=== PATIENT | female | born 1985 | race African-American/Black ===

== ENCOUNTER 2016-03-04 22:05 | Emergency (ER) | payer BC ==
[~2016-03-04] VITALS: Ht 162.6 cm; Wt 89.0 kg
[~2016-03-04 22:05] MED LIST: NITR-58 PO; PHEN95TA29 PO
[2016-03-04 22:08] VITALS: Ht 162.6 cm; Wt 89.0 kg
[2016-03-04] MEDS ORDERED: IBUP-1542 PO (23:33)
[2016-03-04] MEDS ORDERED: AMOX1TAB10 PO (23:33)
--- NOTE | 2016-03-04 23:51 | ERD ---
ER Documentation Chief Complaint Date/Time DATE: 03/04/16 TIME: 23:46 Chief Complaint toothache HPI Patient is a 31-year-old female who presents to the emergency department with tooth pain. Patient states pain started approximately one week ago. Patient states that the pain is in her upper right jaw. Patient states that her current pain now as a 7 out of 10, and throbbing in nature. Patient states that the pain is worse with chewing. Patient has no trismus or muffled voice. She denies any bleeding or discharge. Patient denies trying any pain medications. Patient denies any fever, chills, nausea, vomiting. She has not seen a dentist yet. ROS All systems reviewed and are negative except as per history of present illness. Medications Home Meds Active Scripts Amoxicillin/Potassium Clav (Amox-Clav 875-125 mg Tablet) 875-125 mg Tab, 1 TAB PO BID for 7 Days, #14 TAB Prov:MIKKI REYES PA-C 03/04/16 Ibuprofen* (Ibuprofen*) 600 Mg Tablet, 600 MG PO Q6, #30 TAB Prov:MIKKI REYES PA-C 03/04/16 Phenazopyridine Hcl* (AZO*) 95 Mg Tablet, 95 MG PO TID, #10 TAB Prov:LOY HEREDIA PA-C 10/29/15 Nitrofurantoin Monohyd Macrocr* (Macrobid*) 100 Mg Capsr, 100 MG PO BID for 7 Days, CAP Prov:LOY HEREDIA PA-C 10/29/15 Allergies Allergies: Coded Allergies: No Known Allergy (Unverified , 10/29/15) PMhx/Soc History of Surgery: No Anesthesia Reaction: No Hx Neurological Disorder: No Hx Respiratory Disorders: Yes (ASTHMA) Hx Cardiac Disorders: No Hx Psychiatric Problems: No Hx Miscellaneous Medical Probl: No Hx Alcohol Use: No Hx Substance Use: No FmHx Family History: diabetes Physical Exam Vitals Vital Signs Date Time Temp Pulse Resp B/P Pulse Ox O2 Delivery O2 Flow Rate FiO2 03/04/16 22:08 97.7 86 20 112/55 100 Physical Exam GENERAL: Well-developed, well-nourished female. Appears in no acute distress. Speaking in full sentences. HEAD: Normocephalic, atraumatic. No deformities or ecchymosis. EYE: Pupils equal, round, and reactive to light. EOMs intact. No conjunctival erythema. No scleral icterus. No eye discharge. ENT: External ear without any masses or tenderness. Auditory canals clear bilaterally. TM visualized bilaterally, non-erythematous, non-bulging. Nasal mucosa pink with no discharge. Oropharynx is pink without any tonsillar erythema or exudates. No uvula deviation. No kissing tonsils. Upper right teeth tender to palpation. Gums in upper right jaw appear erythematous. No active bleeding or discharge noted. No trismus. NECK: Supple. No lymphadenopathy or thyromegaly. No meningismus. Trachea midline. No neck hyperextension noted. LUNGS: Clear to auscultation bilaterally. No rhonchi, wheezing, rales or coarse breath sounds. HEART: Regular rate and rhythm. No murmurs, rubs or gallops. EXTREMITES: Equal pulses bilaterally. No peripheral clubbing, cyanosis or edema. No unilateral leg swelling. NEUROLOGIC: Alert and oriented to person, place and time. Moving all four extremities. 5/5 strength in all extremities. Normal speech. Steady gait. SKIN: Normal color. Warm and dry. No rashes or lesions. Procedures/MDM MEDICAL DECISION MAKING: This is a 31-year-old female who presents with upper right tooth pain 1 week. Vital signs were reviewed. Patient is afebrile. Patient is not hypoxic. The patient did not have trismus, muffled voice, uvula deviation, unilateral tonsillar swelling, or drooling. No signs of neck swelling or hyperextension of the neck noted. Given these findings, the patient's presentation is most consistent with dental caries vs. tooth abscess. I have a much lower clinical concern for epiglottitis, strep pharyngitis, peritonsillar abscess, retropharyngeal abscess or Amandeep's angina. PRESCRIPTIONS: Augmentin, Ibuprofen Patient advised to complete full course of antibiotics. A prescription for Ibuprofen was provided for pain/fever control. I have instructed the patient to see a dentist tomorrow. Referral information provided. I have instructed the patient to promptly return to the ER for any new or worsening symptoms including increased pain, fever, neck swelling/stiffness, drooling, rash or difficulty breathing. The patient and/or family expressed understanding of and agreement with this plan. All questions were answered. Home care instructions were provided. Departure Diagnosis: Primary Impression: Tooth pain Condition: Stable Patient Instructions: Dental Pain Referrals: [facility] YOU HAVE RECEIVED A MEDICAL SCREENING EXAM AND THE RESULTS INDICATE THAT YOU DO NOT HAVE A CONDITION THAT REQUIRES URGENT TREATMENT IN THE EMERGENCY DEPARTMENT. FURTHER EVALUATION AND TREATMENT OF YOUR CONDITION CAN WAIT UNTIL YOU ARE SEEN IN YOUR DOCTORS OFFICE WITHIN THE NEXT 1-2 DAYS. IT IS YOUR RESPONSIBILITY TO MAKE AN APPOINTMENT FOR FOLOW-UP CARE. IF YOU HAVE A PRIMARY DOCTOR --you should call your primary doctor and schedule an appointment IF YOU DO NOT HAVE A PRIMARY DOCTOR YOU CAN CALL OUR PHYSICIAN REFERRAL HOTLINE AT IF YOU CAN NOT AFFORD TO SEE A PHYSICIAN YOU CAN CHOSE FROM THE FOLLOWING [facility] [address] [facility] [address] [facility] [address] [facility] [address] [facility] [address] [facility] [facility] [address] [facility] [facility] YOU HAVE RECEIVED A MEDICAL SCREENING EXAM AND THE RESULTS INDICATE THAT YOU DO NOT HAVE A CONDITION THAT REQUIRES URGENT TREATMENT IN THE EMERGENCY DEPARTMENT. FURTHER EVALUATION AND TREATMENT OF YOUR CONDITION CAN WAIT UNTIL YOU ARE SEEN IN YOUR DOCTORS OFFICE WITHIN THE NEXT 1-2 DAYS. IT IS YOUR RESPONSIBILITY TO MAKE AN APPOINTMENT FOR FOLOW-UP CARE. IF YOU HAVE A PRIMARY DOCTOR --you should call your primary doctor and schedule and appointment IF YOU DO NOT HAVE A PRIMARY DOCTOR YOU CAN CALL OUR PHYSICIAN REFERRAL HOTLINE AT . IF YOU CAN NOT AFFORD TO SEE A PHYSICIAN YOU CAN CHOSE FROM THE FOLLOWING [facility] INSTITUTIONS: [facility] [address] [place] [address] [facility] [address] [place] [address] [facility] [address] [place] [address] [facility] ([facility] walk in clinic) Additional Instructions: Call your primary care doctor/dentist TOMORROW for an appointment during the next 1-2 days.See the doctor sooner or return here if your condition worsens before your appointment time. See dental referral list. MIKKI REYES PA-C Mar 04, 2016 23:51
== END 2016-03-04 23:48 | disposition home or self-care (01) ==
LOC: FTE 22:05
DX: K08.89 Other specified disorders of teeth and supporting structures (principal); J45.909 Unspecified asthma, uncomplicated
CPT/HCPCS: 99283

== ENCOUNTER 2016-03-30 13:17 | Emergency (ER) | payer BC ==
[~2016-03-30] VITALS: Ht 170.2 cm; Wt 67.0 kg
[~2016-03-30 13:17] MED LIST changes: +AMOX1TAB10 PO; +IBUP-1542 PO
[2016-03-30 13:39] VITALS: Ht 170.2 cm; Wt 67.0 kg
[2016-03-30 17:57] LABS: URINE BLOOD (Dip) POC Negative (NEGATIVE)
[2016-03-30] MEDS ORDERED: NITR-58 PO (18:24)
--- NOTE | 2016-03-30 18:31 | ERD ---
ER Documentation Chief Complaint Date/Time DATE: 03/30/16 TIME: 18:25 Chief Complaint sore tenderness in vaginal area HPI Patient is a 31-year-old female who presents to the emergency department with vaginal pain 2 days. Patient states that she has pain with urination. Patient states that the pain is burning and stinging in nature. She states her current pain level is a 6 out of 10. Patient denies any pain medication. Patient denies any excessive vaginal bleeding or vaginal discharge. Patient also reports small bump on pubis. Patient states that it is tender to palpation. Patient denies any fever, chills, nausea, vomiting. Patient states that her last menstrual period was on 03/21/16. ROS All systems reviewed and are negative except as per history of present illness. Medications Home Meds Active Scripts Nitrofurantoin Monohyd Macrocr* (Macrobid*) 100 Mg Capsr, 100 MG PO BID for 7 Days, CAP Prov:MIKKI REYES PA-C 03/30/16 Amoxicillin/Potassium Clav (Amox-Clav 875-125 mg Tablet) 875-125 mg Tab, 1 TAB PO BID for 7 Days, #14 TAB Prov:MIKKI REYES PA-C 03/04/16 Ibuprofen* (Ibuprofen*) 600 Mg Tablet, 600 MG PO Q6, #30 TAB Prov:MIKKI REYES PA-C 03/04/16 Phenazopyridine Hcl* (AZO*) 95 Mg Tablet, 95 MG PO TID, #10 TAB Prov:LOY HEREDIA PA-C 10/29/15 Nitrofurantoin Monohyd Macrocr* (Macrobid*) 100 Mg Capsr, 100 MG PO BID for 7 Days, CAP Prov:LOY HEREDIAC 10/29/15 Allergies Allergies: Coded Allergies: No Known Allergy (Unverified , 10/29/15) PMhx/Soc History of Surgery: No Anesthesia Reaction: No Hx Neurological Disorder: No Hx Respiratory Disorders: Yes (ASTHMA) Hx Cardiac Disorders: No Hx Psychiatric Problems: No Hx Miscellaneous Medical Probl: No Hx Alcohol Use: Yes (OCCASIONAL) Hx Substance Use: No Hx Tobacco Use: Yes Smoking Status: Current some day smoker FmHx Family History: No diabetes Physical Exam Vitals Vital Signs Date Time Temp Pulse Resp B/P Pulse Ox O2 Delivery O2 Flow Rate FiO2 03/30/16 13:39 97.8 78 18 117/64 98 Physical Exam GENERAL: Well-developed, well-nourished female. Appears in no acute distress. HEAD: Normocephalic, atraumatic. EYES: Pupils are equally reactive bilaterally. EOMs grossly intact. No conjunctival erythema. ENT: Moist mucous membranes. No uvula deviation. No kissing tonsils. NECK: Supple. No lymphadenopathy or thyromegaly. No meningismus. LUNG: Clear to auscultation bilaterally. No rhonchi, wheezing, rales or coarse breath sounds. HEART: Regular rate and rhythm. No murmurs, rubs or gallops. ABDOMEN: No scars, ecchymosis or rashes noted. Soft and nondistended. Tender to palpation in the suprapubic region. Positive bowel sounds in all four quadrants. No rebound tenderness, no guarding. (-) McBurneys point tenderness. No CVA tenderness. FEMALE GENITALIA: Normal external female genitalia. Normal vaginal mucosal without lesions or discharge. +Ingrown hair in left pubic region. Minimal swelling, +tenderness to palpation, no discharge. EXTREMITIES: Equal pulses bilaterally. No peripheral clubbing, cyanosis or edema. No unilateral leg swelling. NEUROLOGIC: Alert and oriented. Moving all four extremities without any difficulty. Normal speech. Steady gait. SKIN: Normal color. Warm and dry. No rashes or lesions. Results 24 hrs Laboratory Tests Test 03/30/16 17:59 Bedside Urine Blood Negative Bedside Urine Glucose (UA) Negative Bedside Urine Ketones (LAB) Negative Bedside Urine Leukocyte Esterase (L Negative Bedside Urine Nitrite (LAB) Positive Bedside Urine Protein (LAB) Trace Bedside Urine pH (LAB) 7.0 Procedures/MDM MEDICAL DECISION MAKING: This is a 31-year-old female who presents with vaginal pain 2 days. Patient reported pain with urination. Vital signs were reviewed. Patient was afebrile. Urine dip was positive for nitrites, negative for hematuria. Urine was negative. Given these findings, the patients presentation is most consistent with urinary tract infection and ingrown hair. I have a much lower clinical concern for pyelonephritis, nephrolithiasis, diverticulitis, , ectopic , bacterial vaginosis, vaginal candidiasis. PRESCRIPTIONS: Macrobid DISCHARGE: At this time, patient is stable for discharge and outpatient management. Warm compresses advised to ingrown hair. Patient advised to avoid shaving pubic region. I have instructed the patient to follow-up with his/her primary care physician in 1-2 days. Patient should repeat UA in 2 weeks to check for resolution of urinary tract infection. If symptoms persist, patient may need to see a specialist for further examinations and testing. I have instructed the patient to promptly return to the ER at any time for any new or worsening symptoms including increased pain, fever, nausea, vomiting, urinary changes or weakness. The patient and/or family expressed understanding of and agreement with this plan. All questions were answered. Home care instructions were provided. Departure Diagnosis: Primary Impression: UTI (urinary tract infection) Urinary tract infection type: site unspecified Hematuria presence: without hematuria Qualified Code: N39.0 - Urinary tract infection without hematuria, site unspecified Additional Impression: Ingrown hair Condition: Stable Patient Instructions: Understanding Urinary Tract Infections (UTIs) Additional Instructions: Drink plenty of water. Take full course of antibiotics. Warm compresses to ingrown hair. Avoid shaving. Call your primary care doctor TOMORROW for an appointment during the next 1-2 days.See the doctor sooner or return here if your condition worsens before your appointment time. MIKKI REYES PA-C Mar 30, 2016 18:31
== END 2016-03-30 18:28 | disposition home or self-care (01) ==
LOC: FTE 13:17
DX: N39.0 Urinary tract infection, site not specified (principal); L73.1 Pseudofolliculitis barbae; J45.909 Unspecified asthma, uncomplicated; F17.210 Nicotine dependence, cigarettes, uncomplicated
CPT/HCPCS: 81003; 99283

== ENCOUNTER 2016-07-16 00:06 | Emergency (ER) | payer BC ==
[~2016-07-16] VITALS: Ht 160 cm; Wt 77.5 kg
[2016-07-16 00:11] VITALS: Ht 160 cm; Wt 77.5 kg
[2016-07-16] MEDS ORDERED: MICO1COM VG (01:19)
[2016-07-16] MEDS ORDERED: FLUCONAZOLE 150 MG TAB PO ONE (01:30)
--- NOTE | 2016-07-16 01:59 | ERD ---
ER Documentation Chief Complaint Date/Time DATE: 07/16/16 TIME: 01:48 Chief Complaint requesting std check up HPI 31-year-old female presented to ED requesting for STD check. When further questioned, patient admits to having symptoms of vaginal itching and burning with thick white discharge for the last 2 days. Patient is sexually active, with the same male partner for the last 12 month. Patient stated that she have had STD check in the past year, which was negative. Denies fever or chills. Denies dysuria. Denies fishy odor. Denies purulent discharge. Patient also requests urine test. ROS All systems reviewed and are negative except as per history of present illness. Medications Home Meds Active Scripts Miconazole Nitrate (Vagistat-3) 1 Each Kit, 1 EACH VG QHS for 3 Days, KIT Prov:WOLFGANG GRAY [employer]UC[employer] 07/16/16 Nitrofurantoin Monohyd Macrocr* (Macrobid*) 100 Mg Capsr, 100 MG PO BID for 7 Days, CAP Prov:MIKKI REYES PA-C 03/30/16 Amoxicillin/Potassium Clav (Amox-Clav 875-125 mg Tablet) 875-125 mg Tab, 1 TAB PO BID for 7 Days, #14 TAB Prov:MIKKI REYES PA-C 03/04/16 Ibuprofen* (Ibuprofen*) 600 Mg Tablet, 600 MG PO Q6, #30 TAB Prov:MIKKI REYES PA-C 03/04/16 Phenazopyridine Hcl* (AZO*) 95 Mg Tablet, 95 MG PO TID, #10 TAB Prov:LOY HEREDIA PA-C 10/29/15 Nitrofurantoin Monohyd Macrocr* (Macrobid*) 100 Mg Capsr, 100 MG PO BID for 7 Days, CAP Prov:LOY HEREDIA PA-C 10/29/15 Allergies Allergies: Coded Allergies: No Known Allergy (Unverified , 10/29/15) PMhx/Soc History of Surgery: No Anesthesia Reaction: No Hx Neurological Disorder: No Hx Respiratory Disorders: Yes (ASTHMA) Hx Cardiac Disorders: No Hx Psychiatric Problems: No Hx Miscellaneous Medical Probl: No Hx Alcohol Use: Yes (OCCASIONAL) Hx Substance Use: No Hx Tobacco Use: Yes Smoking Status: Current every day smoker Physical Exam Vitals Vital Signs Date Time Temp Pulse Resp B/P Pulse Ox O2 Delivery O2 Flow Rate FiO2 07/16/16 00:11 97.7 85 20 116/58 100 Physical Exam General: Well-developed, well-nourished, conscious and coherent, in no distress Skin: Warm and dry without rash, good texture and turgor Head: Normocephalic without evidence of trauma Eyes: Sclera and conjunctivae normal; pupils equal, round, and reactive to light; extraocular movements are intact Chest: Normal AP diameter. Good expansion without retractions. Nontender. Lungs are clear to auscultate bilaterally with good tidal volume Heart: Regular rate and rhythm. No murmur, rub, or gallops heard Abdomen: Soft and nontender without masses, guarding, or rebound. Bowel sounds are active. No hepatosplenomegaly Back: Without spinal or CVA tenderness Pelvis: Nontender to palpation and stable to compression : Erythema noted in the external genitalia at the vaginal introitus. Thick white discharge present. Extremities: Full range of motion. Good strength bilaterally. No clubbing, cyanosis, or edema. Peripheral pulses are intact. Sensation intact Neuro: Alert and oriented 4, GCS 15. Cranial nerves grossly intact. Motor and sensory exams nonfocal. Moves all extremities. Speech clear. Gait normal Results 24 hrs Current Medications Medications (Trade) Dose Ordered Sig/Royce Route PRN Reason Start Time Stop Time Status Last Admin Dose Admin Fluconazole (Diflucan) 150 mg ONCE ONCE PO 07/16/16 01:30 07/16/16 01:31 DC 07/16/16 01:31 Procedures/MDM Well-appearing 31-year-old female presented ED with vaginal symptoms. Her history exam findings are consistent with yeast vaginitis. Patient has had a single partner for the last 12 month, low risk for sexually transmitted infection. I do not feel a STI testing is warranted at this time. However I informed the patient that if she really wants STI testing, she may obtain them at [facility]. Urine test negative. Patient given Diflucan 150 mg p.o. in the ED. Patient appears well, stable for discharge and outpatient management. Medical decision making shared with patient and family. Education provided to patient and family. Patient and family expressed understanding of the plan. Medications on discharge: Miconazole vaginal suppository. Follow-up: Primary care provider in 2-3 days or return to ED if worse. Departure Diagnosis: Primary Impression: Yeast vaginitis Condition: Good Patient Instructions: Vaginal Infection: Yeast (Candidiasis) Referrals: [facility] YOU HAVE RECEIVED A MEDICAL SCREENING EXAM AND THE RESULTS INDICATE THAT YOU DO NOT HAVE A CONDITION THAT REQUIRES URGENT TREATMENT IN THE EMERGENCY DEPARTMENT. FURTHER EVALUATION AND TREATMENT OF YOUR CONDITION CAN WAIT UNTIL YOU ARE SEEN IN YOUR DOCTORS OFFICE WITHIN THE NEXT 1-2 DAYS. IT IS YOUR RESPONSIBILITY TO MAKE AN APPOINTMENT FOR FOLOW-UP CARE. IF YOU HAVE A PRIMARY DOCTOR --you should call your primary doctor and schedule an appointment IF YOU DO NOT HAVE A PRIMARY DOCTOR YOU CAN CALL OUR PHYSICIAN REFERRAL HOTLINE AT IF YOU CAN NOT AFFORD TO SEE A PHYSICIAN YOU CAN CHOSE FROM THE FOLLOWING [facility] [address] [facility] [address] [facility] [facility] [address] [facility] [address] [facility] [address] [facility]. [facility] [address] [facility] Hours: 8:00 am - 5:00 pm Additional Instructions: Call your primary care doctor TOMORROW for an appointment during the next 2-3 days.See the doctor sooner or return here if your condition worsens before your appointment time. WOLFGANG GRAY NP July 16, 2016 01:58
== END 2016-07-16 01:53 | disposition home or self-care (01) ==
LOC: FTE 00:06
DX: B37.3 Candidiasis of vulva and vagina (principal); J45.909 Unspecified asthma, uncomplicated; F17.210 Nicotine dependence, cigarettes, uncomplicated
CPT/HCPCS: 99283

== ENCOUNTER 2016-08-09 23:58 | Emergency (ER) | payer BC ==
[~2016-08-09] VITALS: Ht 167.6 cm; Wt 81.0 kg
[~2016-08-09 23:58] MED LIST changes: +MICO1COM VG
[2016-08-10 00:02] VITALS: Ht 167.6 cm; Wt 81.0 kg
[2016-08-10] MEDS ORDERED: HYDROCODONE/APAP (5/325) TAB PO ONE (05:00)
[2016-08-10] MEDS ORDERED: ACETAMINOPHEN 500 MG TAB PO STA (05:20)
[2016-08-10] MEDS ORDERED: IBUP-1542 PO (05:44)
--- NOTE | 2016-08-10 05:50 | ERD ---
ER Documentation Chief Complaint Date/Time DATE: 08/10/16 TIME: 05:46 Chief Complaint HIT LEFT RING FINGER ON SOMETHING. SWOLLEN AND PAINFUL NOW HPI This is a 31-year-old female presents to the ER with left fourth digit pain after she injured her finger with a door. Patient states that her finger got stuck with a door and is now painful and swollen. Patient denies any numbness or tingling of the finger. She tried taking ibuprofen however it did not work. Pain is throbbing in quality and worse whenever she moves the finger. Pain does not radiate anywhere. Pain has been constant. ROS 12 point review of systems was done, all negative except per HPI. Medications Home Meds Active Scripts Ibuprofen* (Motrin*) 600 Mg Tab, 600 MG PO Q6, #30 TAB Prov:HARDEEP HDZ 08/10/16 Miconazole Nitrate (Vagistat-3) 1 Each Kit, 1 EACH VG QHS for 3 Days, KIT Prov:WOLFGANG GRAY NP 07/16/16 Nitrofurantoin Monohyd Macrocr* (Macrobid*) 100 Mg Capsr, 100 MG PO BID for 7 Days, CAP Prov:MIKKI REYES PA-C 03/30/16 Amoxicillin/Potassium Clav (Amox-Clav 875-125 mg Tablet) 875-125 mg Tab, 1 TAB PO BID for 7 Days, #14 TAB Prov:MIKKI REYES PA-C 03/04/16 Ibuprofen* (Ibuprofen*) 600 Mg Tablet, 600 MG PO Q6, #30 TAB Prov:MIKKI REYES PA-C 03/04/16 Phenazopyridine Hcl* (AZO*) 95 Mg Tablet, 95 MG PO TID, #10 TAB Prov:LOY HEREDIA PA-C 10/29/15 Nitrofurantoin Monohyd Macrocr* (Macrobid*) 100 Mg Capsr, 100 MG PO BID for 7 Days, CAP Prov:LOY HEREDIA PA-C 10/29/15 Allergies Allergies: Coded Allergies: No Known Allergy (Unverified , 10/29/15) PMhx/Soc History of Surgery: No Anesthesia Reaction: No Hx Neurological Disorder: No Hx Respiratory Disorders: Yes (ASTHMA) Hx Cardiac Disorders: No Hx Psychiatric Problems: Yes (bipolar, schizoprenia) Hx Miscellaneous Medical Probl: No Hx Alcohol Use: No Hx Substance Use: No Hx Tobacco Use: No Smoking Status: Never smoker Physical Exam Vitals Physical Exam GENERAL: The patient is well developed and appropriate for usual state of health , in no apparent distress. HEENT: Atraumatic. CHEST: Clear to auscultation bilaterally. There are no rales, wheezes or rhonchi. HEART: Regular rate and rhythm. No murmurs, clicks, rubs or gallops. EXTREMITIES: Left hand: Patient is tender to palpation along the fourth digit to the DIP joint and DIP joint. Patient however has full range of motion of the joints. FDS and FDP are intact. Normal sensations. No wrist pain no snuffbox tenderness. No deformities of the fingers seen. No ecchymosis. Minor swelling however no erythema. NEURO: Alert and oriented. SKIN: There is no apparent rash or petechia. The skin is warm and dry. Results 24 hrs Current Medications Medications (Trade) Dose Ordered Sig/Royce Route PRN Reason Start Time Stop Time Status Last Admin Dose Admin Acetaminophen/ Hydrocodone Bitart ([place] (5/325)) 1 tab ONCE ONCE PO 08/10/16 05:00 08/10/16 05:01 DC Acetaminophen (Tylenol Tab) 1,000 mg ONCE STAT PO 08/10/16 05:20 08/10/16 05:21 DC 08/10/16 05:22 Procedures/MDM This is a 31-year-old female presents to the ER with right fourth digit pain differential diagnosis includes but is not limited to finger sprain, finger dislocation, fracture, flexor tendon injury, compartment syndrome. Patient does have a fracture of the fourth digit.. Patient was put in a metal splint she was neurovascularly intact before and after splint application. Patient will be sent home with ibuprofen. She is to follow-up with her primary care doctor within 1-2 days or return to ER sooner if symptoms worsen. My medical decision making sure the patient she understands and agrees with plan. Departure Diagnosis: Primary Impression: Finger injury Condition: Stable Patient Instructions: Finger Contusion Additional Instructions: Call your primary care doctor TOMORROW for an appointment during the next 1-2 days.See the doctor sooner or return here if your condition worsens before your appointment time. HARDEEP HDZ Aug 10, 2016 05:50 Additional Instructions: Call your primary care doctor TOMORROW for an appointment during the next 1-2 days.See the doctor sooner or return here if your condition worsens before your appointment time. HARDEEP HDZ Aug 10, 2016 05:50 HARDEEP HDZ Aug 10, 2016 05:50
--- NOTE | 2016-08-10 06:07 | RADRPT ---
PROCEDURE: Left hand x-ray CLINICAL INDICATION: Fourth finger pain TECHNIQUE: AP, lateral and oblique views were obtained. COMPARISON: None FINDINGS: There is a subtle oblique intra-articular fracture of the proximal lateral aspect of the fourth dist al phalanx. No other fracture or evidence of dislocation is seen. No marked soft tissue swelling i s seen. IMPRESSION: Subtle intra-articular fracture of the proximal lateral aspect of the fourth distal phalanx. RPTAT: [facility] Physician Patrick Date Time Electronically viewed and signed by Tiffani Mccarty Physician on 08/10/2016 06:07 LE/
== END 2016-08-10 06:24 | disposition home or self-care (01) ==
LOC: FTE 23:58
DX: S62.635A Displaced fracture of distal phalanx of left ring finger, initial encounter for closed fracture (principal); J45.909 Unspecified asthma, uncomplicated; W22.09XA Striking against other stationary object, initial encounter; Y92.9 Unspecified place or not applicable
CPT/HCPCS: 29130; 73130; Z7610

== ENCOUNTER 2016-08-11 15:47 | Emergency (ER) | payer SELFPAY ==
[~2016-08-11] VITALS: Ht 167.6 cm; Wt 81.5 kg
[2016-08-11 15:50] VITALS: Ht 167.6 cm; Wt 81.5 kg
== END 2016-08-11 17:39 | disposition left against medical advice (07) ==
LOC: FTE 15:47
DX: Z53.21 Procedure and treatment not carried out due to patient leaving prior to being seen by health care provider (principal)

== ENCOUNTER 2016-08-12 18:04 | Emergency (ER) | payer BC ==
[~2016-08-12] VITALS: Ht 167.6 cm; Wt 80.0 kg
[2016-08-12 18:17] VITALS: Ht 167.6 cm; Wt 80.0 kg
--- NOTE | 2016-08-12 20:40 | ERD ---
ER Documentation Chief Complaint Date/Time DATE: 08/12/16 TIME: 20:32 Chief Complaint BIB SELF REQUESTING LAB WORK. PATIENT NEED H/H LEVELS TAKEN TO DONATE BLOOD HPI This pleasant 31-year-old female presents to emergency department for medical clearance by a plasma center. Patient has documentation of hematocrit of hematocrit of 36 this year. ROS All systems reviewed and are negative except as per history of present illness. Medications Home Meds Active Scripts Ibuprofen* (Motrin*) 600 Mg Tab, 600 MG PO Q6, #30 TAB Prov:HARDEEP HDZ 08/10/16 Miconazole Nitrate (Vagistat-3) 1 Each Kit, 1 EACH VG QHS for 3 Days, KIT Prov:WOL[employer]ANG [employer]CE [employer]EDULER 07/16/16 Nitrofurantoin Monohyd Macrocr* (Macrobid*) 100 Mg Capsr, 100 MG PO BID for 7 Days, CAP Prov:MIKKI REYES PA-C 03/30/16 Amoxicillin/Potassium Clav (Amox-Clav 875-125 mg Tablet) 875-125 mg Tab, 1 TAB PO BID for 7 Days, #14 TAB Prov:MIKKI REYES PA-C 03/04/16 Ibuprofen* (Ibuprofen*) 600 Mg Tablet, 600 MG PO Q6, #30 TAB Prov:MIKKI REYES PA-C 03/04/16 Phenazopyridine Hcl* (AZO*) 95 Mg Tablet, 95 MG PO TID, #10 TAB Prov:LOY HEREDIA PA-C 10/29/15 Nitrofurantoin Monohyd Macrocr* (Macrobid*) 100 Mg Capsr, 100 MG PO BID for 7 Days, CAP Prov:LOY HEREDIA PA-C 10/29/15 Allergies Allergies: Coded Allergies: No Known Allergy (Unverified , 10/29/15) PMhx/Soc Medical and Surgical Hx: pt denies Medical Hx History of Surgery: No Anesthesia Reaction: No Hx Neurological Disorder: No Hx Respiratory Disorders: Yes (ASTHMA) Hx Cardiac Disorders: No Hx Psychiatric Problems: Yes (bipolar, schizoprenia) Hx Miscellaneous Medical Probl: No Hx Alcohol Use: No Hx Substance Use: No Hx Tobacco Use: No Smoking Status: Never smoker Physical Exam Vitals Vital Signs Date Time Temp Pulse Resp B/P Pulse Ox O2 Delivery O2 Flow Rate FiO2 08/12/16 18:17 97.0 82 18 110/64 99 Physical Exam Const: Age-appropriate, well-nourished well-hydrated in no acute distress Head: Atraumatic Eyes: Normal Conjunctiva no pallor, PERRLA EOMI ENT: Normal External Ears, Nose and Mouth. Neck: Full range of motion..~ No meningismus. Resp: Respirations even and unlabored, no respiratory distress Cardio: Regular rate and rhythm, no murmurs Abd: Soft, non tender, non distended. Normal bowel sounds Skin: No petechiae or rashes Back: Ext: Neur: Awake and alert Psych: Normal Mood and Affect Procedures/MDM This 31-year-old female presents to emergency department for medical clearance to donate plasma with a hematocrit of 36, patient is in no acute distress, denies any fatigue, shortness of breath, numbness or tingling to fingertips. Denies dizziness, blood in stool or urine. Teaching provided at this time that emergency department would not be able to sign any paperwork for medical clearance would need to see primary physician. Patient states that she does not have a primary care physician. Patient will will be provided with community clinics that would be able to medically clear patient and treat anemia Departure Diagnosis: Primary Impression: Anemia Anemia type: unspecified type Qualified Code: D64.9 - Anemia, unspecified type Condition: Good Patient Instructions: Anemia Referrals: [facility] Additional Instructions: Thank you for for coming to [facility] for your care today. Please ask your nurse or provider if you have questions about your care today and do not leave until all your questions have been answered. Please use any medications given as directed and follow-up with your doctor (or the doctor you were referred to) in the next 2-3 days. If you do not have a primary care doctor [place] [facility] [place] You may also use motrin and tylenol as needed for fever and/or pain unless instructed otherwise by your provider or nurse. Indications for more urgent follow-up have been discussed, but you may return to the Emergency Department at ANY time for any worrisome or worsening symptoms. If you have abdominal pain, please know that no test or exam you received is perfect and you should follow up within 8 hours for continued pain. If you had any imaging studies today, such as an X-Ray or CT Scan, these studies will be reviewed later by a radiologist. You will be called if there are important findings that were not identified today, so make sure the contact information you provided at registration is correct. If you received any narcotic pain control medicine today, such as Vicodin, Morphine or Dilaudid, your coordination and judgment may be affected for a number of hours. Please do not drive or operate heavy machinery, and you may want someone to assist you at home. If you were given a prescription for narcotic medication, be aware that it is very addictive- use sparingly and only if necessary. ARCHANA NO Aug 12, 2016 20:40
== END 2016-08-12 21:04 | disposition left against medical advice (07) ==
LOC: FTE 18:04
DX: D64.9 Anemia, unspecified (principal); J45.909 Unspecified asthma, uncomplicated
CPT/HCPCS: 99282

== ENCOUNTER 2016-08-22 01:19 | Emergency (ER) | payer BC ==
[~2016-08-22] VITALS: Ht 167.6 cm; Wt 84.0 kg
[2016-08-22 01:37] VITALS: Ht 167.6 cm; Wt 84.0 kg
[2016-08-22] MEDS ORDERED: HC1C30 TOP (02:18)
--- NOTE | 2016-08-22 02:18 | ERD ---
ER Documentation Chief Complaint Date/Time DATE: 08/22/16 Chief Complaint Bedbug bite on both legs with itchiness HPI The patient is a 31-year-old female who presents to the Emergency Department with complaint of itchiness secondary to bedbug bites, particularly to her lower extremities. The patient reports that several other people living in the same home have also been experiencing similar bedbug bites. She notes that her bites are mostly on her extremities, and not on her trunk, groin, umbilical regions or any other area that was covered while she was asleep. She notes that the bites are extremely pruritic, particularly to her lower extremities. She is in the process of changing/washing her sheets at home, but was experiencing a lot of itchiness, and therefore decided to present to the Emergency Department for evaluation. Upon arrival, patient is requesting a prescription for a cream to provide symptomatic relief for the itchiness. Otherwise, she denies any other complaints. Denies new allergen exposures. Denies exposure to new foods, lotions, detergents or soaps. Denies taking any new medications. Denies exposure to new animals or plants. Denies recent travel. Denies lip or tongue swelling. Denies difficulty breathing or shortness of breath. Denies change in phonation. He denies any pain, just pruritus. Denies fevers, sweats, chills, nausea, or vomiting. Denies any spreading redness or swelling surrounding the sites of the bites. No other complaints at this time. ROS All systems reviewed and are negative except as per history of present illness. Medications Home Meds Active Scripts Hydrocortisone* Topical (Hydrocortisone* Topical) 1%-28.35 Gm Cream..g., 1 APPLIC TOP Q6 Y for ITCHING, #1 TUB Prov:FRIDA RUELAS PA-C 08/22/16 Ibuprofen* (Motrin*) 600 Mg Tab, 600 MG PO Q6, #30 TAB Prov:HARDEEP HDZ 08/10/16 Miconazole Nitrate (Vagistat-3) 1 Each Kit, 1 EACH VG QHS for 3 Days, KIT Prov:WOLFGANG GRAY [employer]KER 07/16/16 Nitrofurantoin Monohyd Macrocr* (Macrobid*) 100 Mg Capsr, 100 MG PO BID for 7 Days, CAP Prov:MIKKI REYES PA-C 03/30/16 Amoxicillin/Potassium Clav (Amox-Clav 875-125 mg Tablet) 875-125 mg Tab, 1 TAB PO BID for 7 Days, #14 TAB Prov:MIKKI REYES PA-C 03/04/16 Ibuprofen* (Ibuprofen*) 600 Mg Tablet, 600 MG PO Q6, #30 TAB Prov:ERICMIKKI PA-C 03/04/16 Phenazopyridine Hcl* (AZO*) 95 Mg Tablet, 95 MG PO TID, #10 TAB Prov:LOY HEREDIA PA-C 10/29/15 Nitrofurantoin Monohyd Macrocr* (Macrobid*) 100 Mg Capsr, 100 MG PO BID for 7 Days, CAP Prov:LOY HEREDIA PA-C 10/29/15 Allergies Allergies: Coded Allergies: No Known Allergy (Unverified , 10/29/15) PMhx/Soc History of Surgery: No Anesthesia Reaction: No Hx Neurological Disorder: No Hx Respiratory Disorders: Yes (ASTHMA) Hx Cardiac Disorders: No Hx Psychiatric Problems: Yes (bipolar, schizoprenia) Hx Miscellaneous Medical Probl: No Hx Alcohol Use: No Hx Substance Use: No Hx Tobacco Use: No Physical Exam Vitals Vital Signs Date Time Temp Pulse Resp B/P Pulse Ox O2 Delivery O2 Flow Rate FiO2 08/22/16 01:37 97.6 88 20 131/88 100 Physical Exam General: Alert, no acute distress. Skin: Warm, dry, intact, Pruritic papules and macules, some in a linear series , consistent with likely insect bites. No bullae. No surrounding erythema. No lymphatic streaking. No crepitus. No skip lesions. No induration or fluctuance. No drainage or bleeding. No target lesions. No petechiae or purpura. No urticaria. No pain away from site of rash. No skin sloughing. No excoriations. No lesions to groin or periumbilical region. No lesions or burrows to webbed spaces of digits. Head: Normocephalic, atraumatic. Neck: Supple, no tenderness, Full range of motion. Eye: Pupils are equal, round and reactive to light, normal conjunctiva, vision grossly normal. Ears, nose, mouth and throat: Oral mucosa moist, no pharyngeal erythema or exudate, No swelling or lips or tongue, Patent oral airway, No angioedema. Cardiovascular: Regular rate and rhythm, No murmur. Respiratory: Lungs are clear to auscultation, respirations are non-labored, Symmetrical chest wall expansion, No rales, rhonchi or wheezing, No accessory muscle use. Gastrointestinal: Soft, Nontender, Non distended. Musculoskeletal: Normal ROM, normal strength, no tenderness, no swelling, no deformity. Neurological: Alert and oriented to person, place, time, and situation, No focal neurological deficit observed, normal sensory observed, normal motor observed, normal speech observed. Psychiatric: Cooperative. Procedures/MDM This is a 31-year-old female presenting to the emergency department with multiple pruritic macules and papules on her extremities, some of which are in formation of a linear pattern. The patient had no other abnormalities abnormalities on physical examination, and vital signs were stable. No target lesions, skip lesions, crepitus, skin sloughing, urticaria were noted. Vital signs were stable. The patient's oropharynx and airway were patent, and she exhibited no breathing difficulties, wheezing, tongue swelling or lip swelling. No evidence of angioedema, airway compromise, inability to handle oral secretions or stridor. Patient's phonation is normal. No wheezing auscultated on physical examination. Circulation was appropriate, with no systemic signs of anaphylaxis, no hypotension. No associated purpura or generalized petechiae.The differential diagnosis includes, but is not limited to, allergic reaction, insect bite, fungal infection, cellulitis, MRSA, impetigo, shingles, herpes simplex virus, burn, abscess, dermatitis, viral syndrome, candidiasis, medication reaction, Hunt Michael syndrome, epidermolysis bullosa, toxic epidermal necrolysis, meningococcemia, toxic shock syndrome, hand foot and mouth disease, mononucleosis, heat rash, sepsis. There is no current clinical indication of cellulitis or MRSA. No evidence of crepitus, skin lesions or pain away from the site of rash, that would be concerning for necrotizing fasciitis or myositis. No mucosal involvement or appearance concerning for Hunt Michael syndrome or TENS. No airway compromise or concern for anaphylaxis. No indication of angioedema. No excoriations, no lesions in webbed spaced of fingers or to groin, no burrows, no evidence of scabies. Clinical presentation not consistent with erythema nodosum, lyme disease or erythema migrans. After rest, the patient has no new complaints, and remains stable with appropriate vital signs and no signs of respiratory distress. Upon my review and interpretation of the patient's presentation and overall ER course, I believe the patient's symptoms are most consistent with likely insect bites. I suspect bed bugs. The patient is in stable condition and therefore can be discharged home with a prescription for Hydrocortisone for itching, and strict return precautions for signs of deteriorating or worsening condition. The patient is advised to follow up with her primary medical provider in 2-3 days for reevaluation and further management, or return to the ER sooner for any new or worsening symptoms. I shared my medical decision making and plan with the patient at length and in great detail, and she verbally understands and agrees with the plan for further observation and care as an outpatient. At the time of discharge all questions were answered. Departure Diagnosis: Primary Impression: Insect bites Encounter type: initial encounter Qualified Code: W57.XXXA - Insect bites, initial encounter Condition: Stable Patient Instructions: Bedbug Bites, Insect Bite Additional Instructions: Call your primary care doctor TOMORROW for an appointment during the next 2-3 days.See the doctor sooner or return here if your condition worsens before your appointment time. FRIDA RUELAS PA-C Aug 22, 2016 02:18
== END 2016-08-22 02:31 | disposition home or self-care (01) ==
LOC: FTE 01:19
DX: S80.862A Insect bite (nonvenomous), left lower leg, initial encounter (principal); S80.861A Insect bite (nonvenomous), right lower leg, initial encounter; J45.909 Unspecified asthma, uncomplicated; W57.XXXA Bitten or stung by nonvenomous insect and other nonvenomous arthropods, initial encounter; Y92.9 Unspecified place or not applicable
CPT/HCPCS: 99283